=== PATIENT | female | born 1990 | race Caucasian/White ===

== ENCOUNTER → 2016-05-11 | Outpatient (REF) | payer OTHER ==
[~2016-05-11] MED LIST: ACET500C PO; ANUS2.5C2 TOP; COLA100C PO; FERR325T PO; IBUP200C PO; MOM30SS PO; MOTR200T44 PO; PRENTAB40 PO; TYLE167L PO
== END ==
LOC: M SFHCLERA 09:39
PROVIDERS: ATTEND Family Medicine
DX: Z86.19 Personal history of other infectious and parasitic diseases (principal)

== ENCOUNTER → 2016-06-16 | Outpatient (CLI) | payer OTHER ==
--- NOTE | 2016-06-16 13:18 | REP ---
RIGHT BREAST ULTRASOUND: 06/16/2016. Clinical history: The patient reports palpable lump right breast 10 o'clock position for about 2 months with some tenderness. She states it feels slightly larger area than initially. Notes multiple family members on her mother side with breast cancer. Comparison: 04/29/2014 ultrasound. Findings: Sonographic evaluation of the breast parenchyma in the upper outer quadrant 9-11 position in the area of her reported palpable finding. In the upper outer quadrant, there is a dense echogenic fibroid glandular tissue present. There are two lymph nodes present in the axilla. Tail of the breast, this measures 1.5 and 0.9 cm in greatest diameters. Blood flow seen within these nodes. No other findings. Impression: 1. There is no cyst or dominant mass in the breast. There are two lymph nodes in the axillary tail of the breast with normal morphologic and sonographic features. Please correlate clinically. Signed by Alvarez Mathis MD 06/16/2016 04:43 P
== END ==
LOC: M RAD 10:59
PROVIDERS: ATTEND Family Medicine
DX: N63 Unspecified lump in breast (principal)

== ENCOUNTER 2016-06-29 10:17 | Emergency (ER) | payer OTHER ==
[~2016-06-29] VITALS: Ht 165.1 cm; Wt 81.6 kg
[2016-06-29] MEDS ORDERED: FLUO1TAB3 (10:36)
[2016-06-29] MEDS ORDERED: NS 1,000 ML IV ONE (12:00)
[2016-06-29] MEDS ORDERED: diphenhydrAMINE INJ 50MG/ML VIAL (J1200) IV ONE (12:00)
[2016-06-29] MEDS ORDERED: ONDANSETRON 4MG/2ML VIAL (J2405) IV PRN (12:00)
[2016-06-29 12:52] LABS: MEAN CORPUSCULAR HEMOGLOBIN 30.5 pg (27.0-33.0); MEAN CORPUSCULAR HGB CONC 35.5 g/dl (32.0-36.5); MEAN CORPUSCULAR VOLUME 85.8 fl (80.0-96.0); RED CELL DISTRIBUTION WIDTH 12.9 % (11.5-14.5); WHITE BLOOD COUNT 10.3 K/mm3 (4.0-10.0)
--- NOTE | 2016-06-29 13:28 | REP ---
CHEST, TWO VIEWS: There is no evidence of acute infiltrate. No pleural effusion is seen. The heart is normal in size. The mediastinal silhouette is unremarkable. The visualized osseous structures are intact. IMPRESSION: No acute pulmonary disease. Signed by Raoul Rodgers MD 06/29/2016 04:43 P
[2016-06-29 13:52] LABS: ALBUMIN 3.8 GM/DL (3.2-5.2); ALBUMIN/GLOBULIN RATIO 1.09 (1.00-1.93); ALKALINE PHOSPHATASE 79 U/L (45-117); ALT/SGPT 23 U/L (12-78); ANION GAP 10 MEQ/L (8-16); AST/SGOT 23 U/L (15-37); BILIRUBIN,TOTAL 0.3 MG/DL (0.2-1.0); BLOOD UREA NITROGEN 7 MG/DL (7-18); CALCIUM LEVEL 9.1 MG/DL (8.5-10.1); CARBON DIOXIDE LEVEL 25 MEQ/L (21-32); CHLORIDE LEVEL 107 MEQ/L (98-107); GLOMERULAR FILTRATION RATE > 60.0 (>60); GLUCOSE, FASTING 73 MG/DL (70-105); SODIUM LEVEL 142 MEQ/L (136-145); TOTAL PROTEIN 7.3 GM/DL (6.4-8.2)
[2016-06-29 13:55] LABS: POTASSIUM SERUM 4.2 MEQ/L (3.5-5.1)
[2016-06-29] MEDS ORDERED: MORPHINE 4 MG/ML 1ML SYRINGE IV ONE (14:00)
[2016-06-29] MEDS ORDERED: ONDANSETRON 4MG/2ML VIAL (J2405) IV ONE (14:00)
[2016-06-29] MEDS ORDERED: AUGM875T27 PO (14:24)
[2016-06-29] MEDS ORDERED: ZOFR4TAB3 PO (14:24)
[2016-06-29] MEDS ORDERED: PERC5TAB6 PO (14:24)
[2016-06-29 14:26] VITALS: BP 125/70
[2016-06-29] MEDS ORDERED: CLAR1TAB2 PO (14:26)
[2016-06-29] MEDS ORDERED: MUCI600T34 PO (14:26)
[2016-06-29] MEDS ORDERED: AUGMENTIN 875 MG TAB PO ONE (14:30)
--- NOTE | 2016-06-29 20:36 | ECGEPIP ---
Stationary ECG Study [facility] - ED Test Date: 2016-06-29 Pat Name: HUMBLE DARDEN Department: Room: - Gender: F Director Of Academic Support: greta : 1990 Requested By: Shyanne Crandall PA-C Order Number: [id number] Reading MD: Domi Huber Measurements Intervals Parker Rate: 70 P: 18 [place]: 158 QRS: 45 QRSD: 100 T: 8 QT: 399 QTc: 433 Interpretive Statements SINUS RHYTHM NONSPECIFIC T-WAVE ABNORMALITY 10/07/13 - RATE INCREASED Electronically Signed On 06-29-2016 20:36:18 EST by Domi Huber
== END 2016-06-29 14:46 | disposition home or self-care (01) ==
LOC: M ED 11:26
DX: R51 Headache (principal); J01.90 Acute sinusitis, unspecified; Z88.8 Allergy status to other drugs, medicaments and biological substances; Z79.899 Other long term (current) drug therapy
CPT/HCPCS: 36415; 71020; 80053; 85027; 87880; 93005; 96374; 96375; 96376; 99284; J1200; J2405